=== PATIENT | female | born 1970 | race Caucasian/White ===

== ENCOUNTER 2019-03-21 06:50 | Emergency (ER) | payer OTHER ==
[2019-03-21 07:02] VITALS: TEMP 97.9
[2019-03-21] MEDS ORDERED: methylPREDNISolone SOD SUCCI 125 MG/2 ML VIAL IV STA (07:22)
--- NOTE | 2019-03-21 07:24 | ED ---
URI HPI - General Chief Complaint: Upper Respiratory Infection Stated Complaint: SOB Time Seen by Provider: 03/21/19 07:03 Source: patient, EMS, RN notes reviewed Mode of arrival: EMS Limitations: no limitations - History of Present Illness Initial Comments: This a 48-year-old female presents emergency department via EMS from [facility] complaint cough congestion. Patient has been sick for last 4 days. Patient states she has recurrent sinusitis, bronchitis. Patient is a daily smoker. Patient has been at [facility] for last 12 days for cocaine abuse. Patient reports no fevers or chills. Denies chest pain, nausea vomiting diarrhea constipation. She does have productive cough with phlegm. She was given a DuoNeb treatment which has greatly improved her breathing at this time. Patient was given no steroids. Patient denies ear pain but does admit to sinus pressure and congestion. - Related Data Previous Rx's Medication Instructions Recorded Albuterol Sulfate [Proair Hfa] 1 - 2 puff INHALATION Q4HR PRN #1 03/21/19 inhaler Azithromycin [Zithromax Z-pack] 0 mg PO DIRECTED #1 pack 03/21/19 predniSONE 50 mg PO DAILY #5 tab 03/21/19 Allergies Allergy/AdvReac Type Severity Reaction Status Date / Time Sulfa (Sulfonamide Allergy Unknown Verified 03/21/19 07:02 Antibiotics) topiramate [From Topamax] Allergy Unknown Verified 03/21/19 07:03 Review of Systems ROS Statement: Those systems with pertinent positive or pertinent negative responses have been documented in the HPI. ROS Other: All systems not noted in ROS Statement are negative. Past Medical History Past Medical History: Hypertension Additional Past Medical History / Comment(s): Bronchitis, sinusitis History of Any Multi-Drug Resistant Organisms: MRSA Date of last positivie culture/infection: 2009 MDRO Source:: abdomen Past Surgical History: Section, Orthopedic Surgery Past Psychological History: Anxiety, Depression Smoking Status: Current every day smoker Past Alcohol Use History: None Reported Past Drug Use History: Cocaine General Exam General appearance: alert, in no apparent distress Head exam: Present: atraumatic, normocephalic, normal inspection Eye exam: Present: normal appearance, PERRL, EOMI. Absent: scleral icterus, conjunctival injection, periorbital swelling ENT exam: Present: mucous membranes moist, TM's normal bilaterally, normal external ear exam, other ( Maxillary Sinus tenderness). Absent: normal exam, normal oropharynx (Postnasal drainage) Neck exam: Present: normal inspection, full ROM. Absent: tenderness, meningismus, lymphadenopathy Respiratory exam: Present: wheezes. Absent: normal lung sounds bilaterally, respiratory distress, rales, rhonchi, stridor Cardiovascular Exam: Present: regular rate, normal rhythm, normal heart sounds. Absent: systolic murmur, diastolic murmur, rubs, gallop, clicks GI/Abdominal exam: Present: soft, normal bowel sounds. Absent: distended, tenderness, guarding, rebound, rigid Course Vital Signs 03/21/19 06:54 Temperature 97.9 F Pulse Rate 80 Respiratory 18 Rate Blood Pressure 143/82 O2 Sat by Pulse 99 Oximetry Medical Decision Making - Medical Decision Making 48-year-old female presented for cough congestion sinus issues. Patient has recurrent issues related to sinusitis and bronchitis. Patient is a daily smoker.I counseled the patient for smoking cessation for greater than 3 minutes. Patient was placed on antibiotics, steroids and given an inhaler she did have relief of symptoms after DuoNeb treatment. Patient be discharged back to [facility]. Disposition Clinical Impression: Bronchitis Disposition: HOME SELF-CARE Condition: Stable Instructions (If sedation given, give patient instructions): Upper Respiratory Infection (ED) Additional Instructions: Please return to the Emergency Department if symptoms worsen or any other concerns. Prescriptions: predniSONE 50 mg PO DAILY #5 tab Albuterol Sulfate [Proair Hfa] 1 - 2 puff INHALATION Q4HR PRN #1 inhaler PRN Reason: difficulty in breathing Azithromycin [Zithromax Z-pack] 0 mg PO DIRECTED #1 pack Is patient prescribed a controlled substance at d/c from ED?: No Referrals: Nonstaff,Physician [REFERRING] - 1-2 days Time of Disposition: 07:49
--- NOTE | 2019-03-21 07:44 | XR ---
EXAMINATION TYPE: XR chest 2V DATE OF EXAM: 03/21/2019 COMPARISON: None HISTORY: 48-year-old female cough and pain TECHNIQUE: PA and lateral views FINDINGS: Heart normal size. Aorta and pulmonary vasculature within normal limits. Mild interstitial prominence . No consolidation or pleural effusion. IMPRESSION: Interstitial prominence, possible bronchitis or asthma. No focal infiltrate.
[2019-03-21] MEDS ORDERED: cefTRIAXone IN SWFI 1,000 MG/10 ML SYRINGE IVP STA (07:48)
[2019-03-21 08:21] VITALS: BP 146/79; PULSE 78; RESP 17
== END 2019-03-21 08:15 | disposition home or self-care (01) ==
LOC: EC 06:50
DX: J40 Bronchitis, not specified as acute or chronic (principal); J32.9 Chronic sinusitis, unspecified; F14.10 Cocaine abuse, uncomplicated; Z71.6 Tobacco abuse counseling; F17.200 Nicotine dependence, unspecified, uncomplicated; Z88.2 Allergy status to sulfonamides; Z88.8 Allergy status to other drugs, medicaments and biological substances; Z86.14 Personal history of Methicillin resistant Staphylococcus aureus infection
CPT/HCPCS: 99285; 96374; 96375; 99406; 71046; J2930; J0696